=== PATIENT | male | born 1965 | race Caucasian/White ===

== ENCOUNTER 2019-09-11 09:45 | Emergency (ER) | payer BC, OTHER ==
[2019-09-11 09:52] VITALS: BP 134/82; PULSE 76; RESP 20; TEMP 97.8
--- NOTE | 2019-09-11 10:30 | ED ---
Upper Extremity HPI - General Chief Complaint: Extremity Injury, Upper Stated Complaint: shoulder pain Time Seen by Provider: 09/11/19 09:58 Source: patient Mode of arrival: ambulatory - History of Present Illness Initial Comments: Patient is a 54-year-old male presenting to emergency Department with complaints of right shoulder pain has been increasing over the past few weeks. Patient does not recall any injuries or trauma to his right shoulder. Patient denies any previous surgeries to his right shoulder. Patient states he first noticed the pain just before he had a heart cath performed a few weeks ago. Patient states after the procedure he noticed the pain had increased. Today patient arrives in the ER with a sling on his right arm and states he is unable to move around his shoulder secondary to the pain. Patient states he is having hard time sleeping as well. Patient does admit to some radiating pain into his right hand. Patient denies fever, chills, chest pain, shortness of breath. Patient has no other complaints at this time. Upon arrival to the ER, vital signs are stable. - Related Data Home Medications Medication Instructions Recorded Confirmed Aspirin 81 mg PO DAILY 10/04/14 09/11/19 Omeprazole [PriLOSEC] 20 mg PO DAILY 10/04/14 09/11/19 Atorvastatin [Lipitor] 80 mg PO HS 09/11/19 09/11/19 Metoprolol Succinate (ER) [Toprol 25 mg PO DAILY 09/11/19 09/11/19 Xl] Prasugrel HCl 10 mg PO HS 09/11/19 09/11/19 buPROPion HCL [Wellbutrin SR] 100 mg PO BID 09/11/19 09/11/19 Allergies Allergy/AdvReac Type Severity Reaction Status Date / Time promethazine [From Phenergan] Allergy Rash/Hives Verified 09/11/19 10:47 Review of Systems ROS Statement: Those systems with pertinent positive or pertinent negative responses have been documented in the HPI. ROS Other: All systems not noted in ROS Statement are negative. Past Medical History Past Medical History: GERD/Reflux, Pneumonia Additional Past Medical History / Comment(s): migraines, History of Any Multi-Drug Resistant Organisms: None Reported Past Surgical History: Heart Catheterization With Stent, Orthopedic Surgery, To nsillectomy Additional Past Surgical History / Comment(s): burton carpal tunnel, burton knee surgery, pins-fingers, Past Anesthesia/Blood Transfusion Reactions: Family History of Problems w/ Anesthesia Additional Past Anesthesia/Blood Transfusion Reaction / Comment(s): mother and sister-PONV, pt-"high tolerance" Past Psychological History: Anxiety, Depression Smoking Status: Former smoker Past Alcohol Use History: None Reported Past Drug Use History: None Reported - Past Family History Father Family Medical History: Cancer Mother Family Medical History: Cancer Sister(s) Family Medical History: Cancer General Exam - General Exam Comments Initial Comments: GENERAL: Well-appearing, well-nourished and in no acute distress. HEAD: Atraumatic, normocephalic. EYES: Pupils equal round and reactive to light, extraocular movements intact, sclera anicteric, conjunctiva are normal. ENT: Moist mucous membranes. NECK: Normal range of motion, supple without lymphadenopathy or JVD. LUNGS: Breath sounds clear to auscultation bilaterally and equal. No wheezes rales or rhonchi. HEART: Regular rate and rhythm without murmurs, rubs or gallops. ABDOMEN: Soft, nontender, normoactive bowel sounds. No guarding, no rebound. No masses appreciated. EXTREMITIES: Pain with palpation of the right anterior, superior, and the posterior shoulder. No deformities are felt. Patient is unable to do range of motion of the right shoulder secondary to pain. Neurovascular intact. No pain of the right elbow, forearm, hand. NEUROLOGICAL: Cranial nerves II through XII grossly intact. Normal speech, normal gait. PSYCH: Normal mood, normal affect. SKIN: Warm, Dry, normal turgor, no rashes or lesions noted. Course Vital Signs 09/11/19 09:45 Temperature 97.8 F Pulse Rate 76 Respiratory 20 Rate Blood Pressure 134/82 O2 Sat by Pulse 95 Oximetry Medical Decision Making - Medical Decision Making Patient is a 54-year-old male presenting with right shoulder pain has been increasing over the past few weeks. Denies any injuries or trauma to the haroon ulder. X-rays reveal no acute fractures dislocations, degenerative changes noted. I discussed with patient that he needs to follow up with orthopedics for further treatment and investigation of this pain. Patient will be given course of steroids today. Patient states he does not want to take anti-inflammatories or any other pain medications. Patient is stable for discharge at this time. Patient will be given orthopedic referral. Return parameters were discussed with the patient he verbalizes understanding case discussed with Dr. Gunderson. Disposition Clinical Impression: Right shoulder pain Disposition: HOME SELF-CARE Condition: Stable Instructions (If sedation given, give patient instructions): Shoulder Pain (ED) Additional Instructions: Please return to the Emergency Department if symptoms worsen or any other concerns. Follow-up with orthopedics as discussed for further management. Trial of Tylenol for pain relief. May also use heat and/or ice to the area. Is patient prescribed a controlled substance at d/c from ED?: No Referrals: Deuce Sharp MD [Primary Care Provider] - 1-2 days Siddhartha Orozco MD [STAFF PHYSICIAN] - 1-2 days
--- NOTE | 2019-09-11 11:04 | XR ---
EXAMINATION TYPE: XR shoulder complete RT DATE OF EXAM: 09/11/2019 CLINICAL HISTORY: Right shoulder pain for one week. TECHNIQUE: Three views of the right shoulder are obtained. COMPARISON: None. FINDINGS: There is no acute fracture/dislocation evident in the right shoulder. Fzli-cp-ebtkefoi roxann rowing glenohumeral and acromioclavicular joints. Distal acromion morphology unremarkable. Some calci fication along the course of the distal rotator cuff tendons thought present. The visualized ribs ar e intact and unremarkable. IMPRESSION: As above.
[2019-09-11] MEDS ORDERED: methylPREDNISolone SOD SUCCI 125 MG/2 ML VIAL IM ONE (11:22)
== END 2019-09-11 11:52 | disposition home or self-care (01) ==
LOC: EC 09:45
DX: M25.511 Pain in right shoulder (principal); K21.9 Gastro-esophageal reflux disease without esophagitis; F41.9 Anxiety disorder, unspecified; F32.9 Major depressive disorder, single episode, unspecified; Z79.82 Long term (current) use of aspirin; Z79.899 Other long term (current) drug therapy; Z88.8 Allergy status to other drugs, medicaments and biological substances; Z87.891 Personal history of nicotine dependence; Z95.5 Presence of coronary angioplasty implant and graft
CPT/HCPCS: 96372; 99283